=== PATIENT | female | born 1940 | race African-American/Black ===

== ENCOUNTER 2019-07-04 14:32 | Inpatient (IN) | payer MEDICARE ==
[~2019-07-04] VITALS: Ht 162.6 cm; Wt 64.0 kg
[2019-07-04 14:35] VITALS: Ht 162.6 cm; Wt 64.0 kg
--- NOTE | 2019-07-04 14:40 | NUR ---
PT BIB AMBULANCE TODAY WITH C/C OF ALOC. PER MEDICS, THIS IS THE SECOND TIME THEYVE RAN A CALL ON HER TODAY, THE FIRST ONE, PT WAS WALKIE TALKIE AND NEEDED A LIFT ASSIST. ON THE SECOND CALL, PT WAS FOUND SLUMPED OVER AND UNRESPONSIVE, ONLY OPENING HER EYES. PT WERE UNABLE TO OBTAIN AN ACCURATE SET OF VITALS IN THE FIELD BUT REPORTED LOW O2 SATS. PT WAS BAGGED EN ROUTE, AND ARRIVED WITH NONBREATHER MASK. MEDICS PLACED AN IO TO HER LEFT TIBIA, AFTERWARDS, PT WOKE RIGHT UP AND BECAME MORE RESPONSIVE. PT HAS UTERINE CA AND HER LAST CHEMO WAS 06/25 AT [facility]. PER FAMILY, THIS IS THE SECOND TIME "SOMETHING LIKE THIS" HAS HAPPENED AND WAS IN THE HOSPITAL AND DX WITH DEHYDRATION. BS 83 EN ROUTE. UPON ARRIVAL TO ED, PT IS AAOX4, ANSWERING ALL QUESTIONS APPROPRIATELY, RT AT BEDSIDE. WILL CONTINUE TO MONITOR.
--- NOTE | 2019-07-04 14:43 | NUR ---
RT AT BEDSIDE PLACING PT ON BIPAP.
--- NOTE | 2019-07-04 14:56 | NUR ---
RT'S AT BEDSIDE DRAWING ABG, LAB AT BEDSIDE.
--- NOTE | 2019-07-04 15:06 | NUR ---
ABG RESULTS SHOWN TO DR PERALTA BY RT. RT AT BEDSIDE PLACING PT ON 2L NC.
--- NOTE | 2019-07-04 15:16 | NUR ---
PT TAKEN TO CT VIA DIAMANTE HART NOTED.
--- NOTE | 2019-07-04 15:16 | NUR ---
BP 81/53, MADE AWARE, NEW ORDERS RECEIVED FOR IV BOLUSES X2. INITIATED.
[2019-07-04 15:24] LABS: PLATELET COUNT 109 x10^3mcL (130-400); RED CELL DISTRIBUTION WIDTH 25.4 % (11.5-14.5)
--- NOTE | 2019-07-04 15:27 | NUR ---
PT RETURNED FROM CT VIA PRESTON HART, HIRAM AT BEDSIDE.
[2019-07-04 15:33] LABS: ALT/SGPT 98 U/L (14-59); BILIRUBIN TOTAL 3.99 mg/dL (0.20-1.00); CALCIUM 8.4 mg/dL (8.5-10.1)
[2019-07-04 15:44] LABS: AST/SGOT 328 U/L (15-37); CHLORIDE SERUM 101 mmol/L (98-107); CHOLESTEROL 199 mg/dL (<200); GLUCOSE SERUM 116 mg/dL (74-106); SODIUM SERUM 136 mmol/L (136-145)
[2019-07-04 15:47] LABS: BAND NEUTROPHIL 4 % (0-10); MONOCYTE 4 % (0-7); SEGMENTED NEUTROPHILS 90 % (37-75)
[2019-07-04 15:48] LABS: acanthocyte (spur cell) 2+; ovalocyte/elliptocyte 2+; rbc morphology (normal/abnorm) ABNORMAL (NORMAL); target cell (codocyte) 1+
[2019-07-04 15:49] LABS: PLATELET MORPHOLOGY FEW PLT CLUMPS SEEN
[2019-07-04 16:02] LABS: ALBUMIN 2.2 g/dL (3.4-5.0)
[2019-07-04 16:04] LABS: ALKALINE PHOSPHATASE 1190 U/L (46-116)
[2019-07-04 16:07] LABS: CARBON DIOXIDE 9.2 mmol/L (21-32); CREATININE SERUM 4.7 mg/dL (0.6-1.0); POTASSIUM SERUM 5.7 mmol/L (3.5-5.1)
--- NOTE | 2019-07-04 16:15 | NUR ---
DR PERALTA AT BEDSIDE TO DISCUSS PLAN OF CARE. PT REMAINS AAOX4, SPEAKING CLEARLY TO FAMILY MEMBERS AT BEDSIDE. NAD NOTED.
--- NOTE | 2019-07-04 16:50 | NUR ---
PT MEDICATED PER ORDER, PT VERBALIZED UNDERSTANDING OF MEDICATION PRIOR TO ADMINISTRATION.
--- NOTE | 2019-07-04 17:56 | NUR ---
PT PROVIDED WITH DINNER TRAY. PT SITTING UP TO EAT, FAMILY AT BEDSIDE TO ASSIST.
[2019-07-04 18:35] LABS: CALCIUM 8.1 mg/dL (8.5-10.1); CARBON DIOXIDE 11.6 mmol/L (21-32); CHLORIDE SERUM 104 mmol/L (98-107); GLUCOSE SERUM 134 mg/dL (74-106); SODIUM SERUM 139 mmol/L (136-145)
[2019-07-04 18:52] LABS: CREATININE SERUM 4.5 mg/dL (0.6-1.0)
--- NOTE | 2019-07-04 18:55 | NUR ---
PT SITTING UP IN [place], APPEARS TO BE MORE AWAKE AND ALERT, SMILING, CONVERSING WITH FAMILY AT BEDSIDE. REMAINS ON 2L VIA NC.
--- NOTE | 2019-07-04 19:07 | NUR ---
REPORT GIVEN TO [facility] TO ASSUME CARE FOR PT.
--- NOTE | 2019-07-04 19:27 | NUR ---
RECEIVED REPORT BY EMELI COYNE
--- NOTE | 2019-07-04 19:30 | NUR ---
PT. LAYING IN BED, AAOX4, NO ACUTE DISTRESS NOTED, REPOSITIONED FOR COMFORT, 0/10 PAIN, DAUGTHER AT BEDSIDE, PENDING TRANSFER TO [facility]
--- NOTE | 2019-07-04 19:51 | NUR ---
MEDICATED PT. PER DRJosefina ORDERS, PT. TOLTERATED WELL, SEE EMAR
--- NOTE | 2019-07-04 20:29 | NUR ---
UPDATED PT & FAMILY POC, PENDING TRANSFER TO [place] OR [facility],
--- NOTE | 2019-07-04 20:51 | NUR ---
REPORT GIVEN TO ALENA COYNE FROM [facility], WILL CALL BACK FOR REPEAT K, AT [phone]
--- NOTE | 2019-07-04 21:06 | NUR ---
REPORT GIVEN TO ALENA, PER DR. SHARA Tee TRENDING DOWN TO 5.7 CURRENTLY
--- NOTE | 2019-07-04 21:23 | NUR ---
UPDATED PT. AND FAMILY RE: POC, PENDING TRANSFER TO [facility],
--- NOTE | 2019-07-04 21:33 | NUR ---
SPOKE WITH ALENA RN FROM [facility], SHE STATES THAT THE ATTENDING DOES NOT WANT TO TRANSFER UNLESS K IS 5, REQUESTING ANOTHER BLOOD DRAW, PER DR. OLMEDO, GOING TO ADMIT PT.
--- NOTE | 2019-07-04 21:44 | NUR ---
SPOKE WITH ALENA [facility], MADE HER AWARE THAT DR. OLMEDO WOULD LIKE TO ADMIT PT, SHE STATED SHE IS GOING TO SPEAK WITH HER DR. AND GIVE US A CALL BACK, DR. OLMEDO MADE AWARE
[2019-07-04 22:51] LABS: MAGNESIUM 2.7 mg/dL (1.8-2.4); PHOSPHOROUS 5.9 mg/dL (2.5-4.9)
--- NOTE | 2019-07-04 22:55 | NUR ---
SPOKE WITH JAYSON COYNE IN TELE TO GIVE REPORT, SHE STATED THAT SHE WILL SPEAK WITH THE DR. FIRST BEFORE GETTING REPORT, CN MADE AWARE
--- NOTE | 2019-07-04 23:12 | NUR ---
REPORT GIVEN TO KAROLYN SAENZ RN
--- NOTE | 2019-07-04 23:43 | NUR ---
REMOVED IO FROM LOWER RIGHT EXTREMITY, NEEDLE INTACT, PRESSURE APPLIED, DRESSING APPLIED WITH CARMELITA PT. TOLERATED WELL, STATES,"IT DIDNT HURT." "THANK YOU."
[2019-07-05] VITALS (8 sets, daily range): BP systolic 80–107; BP diastolic 48–60
--- NOTE | 2019-07-05 00:16 | NUR ---
PT TRANSPORTED TO TELE AT THIS TIME. PT IS AWAKE AND ALERT, RESP E/U, SPEAKING CLEARLY, NAD NOTED. PT AND HER DAUGHTER AT BEDSIDE VERBALIZED UNDERSTANDING OF PLAN OF CARE.
--- NOTE | 2019-07-05 00:33 | NUR ---
RECEIVED PT VIA [employer] FROM E/D, ACCOMPANIED BY RN, TRANSPORTER, AND PT'S DAUGHTER, REFUGIO SMILEY. PT CURRENTLY A/A/O X 4, CALM, COOPERATIVE. ON TELE # 23, HR 104, ST, DENIES CHEST PAIN OR DISCOMFORT AT THIS TIME. SCD BY BEDSIDE. NO ACUTE RESPIRATORY DISTRESS NOTED. POOR PO INTAKE > 3 DAYS. PT W/ GENERALIZED WEAKNESS, AMBULATES W/ ASSIST AND/OR WALKER @ HOME, FALL RISK PROTOCOL IN PLACE. NOTED SKIN TEAR TO R BUTTOCK, COVERED W/ ISLAND DRESSING, CDI. IV SITE RH 20G, CDI. ORIENTED PT AND DAUGHTER TO ROOM, BED CONTROLS, CALL LIGHT SYSTEM. SIDE RAILS UP X 2, BED IN LOW POSITION. WILL ENDORSE TO [facility].
--- NOTE | 2019-07-05 01:36 | NUR ---
PATIENT STILL AWAKE WITH NO SIGN OF RESPIRATORY DISTRESS, BREATHING EASY AND NONLABOR SATTING AT96% ON O2 AT 2L VUA NC. WITH ADMISSION OREDRS FROM DR THOMSON SAYED AND CARRIED OUT. STARTED WITH NS INFUSING AT 100ML/HR. WILL CONTINUE TO MONITOR. CALL LIGHT WITHIN REACH. DAUGHTER AT BEDSIDE.
[2019-07-05 02:15] LABS: CARBON DIOXIDE 12.7 mmol/L (21-32); CHLORIDE SERUM 105 mmol/L (98-107); GLUCOSE SERUM 124 mg/dL (74-106); POTASSIUM SERUM 5.3 mmol/L (3.5-5.1); SODIUM SERUM 139 mmol/L (136-145)
[2019-07-05 02:37] LABS: CREATININE SERUM 4.4 mg/dL (0.6-1.0)
--- NOTE | 2019-07-05 05:16 | NUR ---
SLEPT FAIRLY ON CONTINOUS O2 AT 2L VIA NC. HAD BM X1 SOFT IN MODERATE AMOUNT. DAUGHTER AT BEDSIDE. ALL NEEDS ATTENDED.
--- NOTE | 2019-07-05 07:10 | NUR ---
RECEIVED PT FROM SANDWICH ARTIST RN. Leo/PAZ. TELE#23. DENIES CHEST PAIN/PRESSURE. RESPIRATIONS EQUAL AND UNLABORED ON 2L NC. DENIES SOB. DENIES ANY PAIN AT THIS TIME. IV TO RH REMOVED CATHETER INTACT. SWELLING NOTED TO RIGHT HAND, PHOTO TAKEN. DRESSING TO LEFT TIBIA FROM PREVIOUS IO INTACT. NO DRAINAGE NOTED. WILL CONTINUE TO MONITOR. CALL LIGHT IN REACH. BED IN LOWEST POSITION.
--- NOTE | 2019-07-05 11:23 | NUR ---
PT SITTING UP IN BED. DAUGHTER REFUGIO AT BEDSIDE. FAMILY REPORTED PT HAD SOME DYSPHAGIA AT HOME. PER DAUGHTER REFUGIO "I DONT KNOW IF IT IS DIFFICULTY SWALLOWING BUT WHEN SHE WANTS TO EAT SOMETHING SHE LIKES SHE WILL, BUT WHEN SHE DOESN'T LIKE SOMETHING SHE C/O DIFFICULTY SWALLOWING." PAGED DR. CANNON, AWAITING CALL BACK.
--- NOTE | 2019-07-05 12:19 | NUR ---
SPOKE WITH DR. CANNON REGARDING SPEECH THERAPIST RECOMMENDATION FOR PUREE DIET AND REGULAR LIQUIDS. PER DR. CANNON WILL CHANGE DIET ORDER.
--- NOTE | 2019-07-05 12:27 | NUR ---
PT SITTING UP IN BED. BLOOD PRESSURE RECHECKED WAS 86/45 ON RIGHT ARM, CHECKED ON LEFT ARM WAS 88/49. PAGED DR. CANNON. AWAITING CALL BACK.
--- NOTE | 2019-07-05 12:28 | NUR ---
PT WAS SEEN FOR DYSPHAGIA. PT WAS ABLETO SAFELY SWALLOW PUREE DIET WITH THIN LIQUID WITHOUT S/S OF ASPIRATION. PT HAD POCKETING FOR MS DIET. RECOMMENDATION PUREE DIET WITH THIN LIQUID. SMALL BITES AND SIPS ONLY.
--- NOTE | 2019-07-05 15:10 | NUR ---
SPOKE WITH DR. CANNON REGARDING US GUIDED THORACENTESIS. PER DR. CANNON WILL PUT IN ORDER NOW TO BE DONE TODAY.
--- NOTE | 2019-07-05 15:19 | NUR ---
DR. CANNON SPOKE WITH RADIOLOGIST, RADIOLOGIST IS LEAVING FOR THE DAY. PER DR. CANNON WILL ORDER FOR THORACENTESIS TO BE DONE TOMORROW MORNING. SPOKE WITH EXCELLENCE COACH PAULINA AT [place] MADE AWARE.
--- NOTE | 2019-07-05 16:02 | NUR ---
SPOKE WITH DAUGHTER REFUGIO, UPDATED THAT [facility] IS LOOKING FOR A BED, IF BED IS AVAILABLE PT WILL BE TRANSFERRED AND THORACENTESIS WILL BE DONE AT [facility], IF NO BED AVIALBLE THORACENTESIS WILL BE DONE AT [facility] TOMORROW. DAUGHTER MADE AWARE ABOUT PLAN TO PLACE A PICC LINE, DAUGHTER OKAY WITH PICC PLACEMENT. DAUGHTER STATES "I AM ON MY WAY AND WILL SIGN THE PAPERWORK WHEN I GET THERE"
--- NOTE | 2019-07-05 16:12 | NUR ---
RECEIVED ORDER FROM (RESIDENT) ASSIGNED TO THIS PT, ORDER FOR PICC LINE PLACEMENT. CALLED TO [employer] AND SPOKE TO JULIAN AND MADE HER AWARE OF ORDER, RANGEL PICC NURSE IS THE ONE DEMAND GENERATION MANAGER AND JULIAN SAYS SHE WILL HAVE RANGEL CALL THE UNIT FOR HIS E.T.A. TERESA RN ASSIGNED TO THIS PT MADE AWARE OF ABOVE.
--- NOTE | 2019-07-05 18:01 | NUR ---
SPOKE WITH MANDIE IN ULTRASOUND. INFORMED HER ONCE PICC LINE NURSE HAS ARRIVED WILL CALL [employer] CAKE DECORATOR FOR US GUIDED VASCULAR ACCESS
--- NOTE | 2019-07-05 19:42 | NUR ---
PICC LINE TO [facility] INSERTED AND CONFIRMED PLACEMENT AND OK TO USE PER PICC LINE NURSE.PT FOR TRANSFER TO [facility].DAUGHTER AWARE OF TRANSFER.RECEVED PT AWAKE ALERT AND ORIENTED TO NAME AND BIRTHDATE ONLY.MADE AWARE OF TRANSFER.DRESSING TO PICC LINE TO [facility] INTACT.IN NO DISTRESS.BP 93/50 MMHG,HR 105.TEMP 97.6F,RR 21.
--- NOTE | 2019-07-05 21:10 | NUR ---
REPORT GIVEN TO KHUSHBOO AND ALL INFORMATION GIVEN.2 ATTENDANTS FROM [facility] IN THE FACILITY FOR P/U.DAUGHTER SIGNED TRANSFER SHEET.
--- NOTE | 2019-07-05 21:18 | NUR ---
PT TRANSFERRED TO [facility] ORDERED.P/U BY 2 ATTENDANTS [facility] VIA [employer].DAUGHTER AT BEDSIDE.ALL BELONGINGS SENT WITH PT .D/C TELE MONITOR AND SENT BACK .PT IN NO DISTRESS.
== END 2019-07-05 21:18 | disposition short-term general hospital (02) | DRG 640 ==
LOC: ED 14:32 → DU 22:04
PROVIDERS: Emergency Medicine; ADMIT General Practice
DX: E86.0 Dehydration (principal); G93.41 Metabolic encephalopathy; J96.01 Acute respiratory failure with hypoxia; K85.90 Acute pancreatitis without necrosis or infection, unspecified; N17.9 Acute kidney failure, unspecified; C78.02 Secondary malignant neoplasm of left lung; J91.0 Malignant pleural effusion; C79.89 Secondary malignant neoplasm of other specified sites; C78.89 Secondary malignant neoplasm of other digestive organs; R13.10 Dysphagia, unspecified; E87.2 Acidosis; E87.5 Hyperkalemia; E83.41 Hypermagnesemia; L89.311 Pressure ulcer of right buttock, stage 1; D53.9 Nutritional anemia, unspecified; N18.9 Chronic kidney disease, unspecified; Z68.24 Body mass index [BMI] 24.0-24.9, adult; Z85.42 Personal history of malignant neoplasm of other parts of uterus; Z79.899 Other long term (current) drug therapy
CPT/HCPCS: 36600; 83880; G0378; G0480; J0610; J1815; J3490; J7030; J7060; J7613; Q0092